=== PATIENT | female | born 1960 | race Caucasian/White ===

== ENCOUNTER 2017-08-27 16:17 | Emergency (ER) | payer MEDICAID, OTHER ==
[~2017-08-27] VITALS: Ht 167.6 cm; Wt 78.9 kg
--- NOTE | 2017-08-27 16:26 | NUR ---
aaox3, BBRA FROM HOME FOR DIZZINESS AND NAUSEA X THIS 0730AM, also c/o abdominal discomfort. RR is even and unlabored with nad noted. Skin is warm and dry. Awaiting md for eval.
[2017-08-27] MEDS ORDERED: ONDANSETRON HCL/PF 4 MG/2 ML VIAL ONE ×2 (16:44→16:58)
[2017-08-27] MEDS ORDERED: KETOROLAC TROMETHAMINE INJ 30 MG/ML VIAL ONE ×2 (16:44→16:58)
[2017-08-27] MEDS ORDERED: ONDANSETRON HCL/PF 4 MG/2 ML VIAL IVP ONE (17:00)
[2017-08-27] MEDS ORDERED: IV NS 0.9% 1,000 ML BAG IV ONE ×2 (17:00→20:00)
[2017-08-27] MEDS ORDERED: KETOROLAC TROMETHAMINE INJ 30 MG/ML VIAL IV ONE (17:00)
[2017-08-27 17:16] LABS: BASOPHILS % (AUTO) 0.1 % (0.0-2.0); EOSINOPHILS % (AUTO) 1.4 % (0.0-6.0); HEMATOCRIT 42 % (33-45); HEMOGLOBIN 14.2 g/dL (11.5-14.8); LYMPHOCYTES # (AUTO) 1.2 /CMM (0.8-4.8); LYMPHOCYTES % (AUTO) 6.8 % (20.0-44.0); MEAN CORPUSCULAR HGB CONC 34 g/dl (31.0-36.0); MEAN CORPUSCULAR VOLUME 87 fL (82-100); MONOCYTES # (AUTO) 0.8 /CMM (0.1-1.30); MONOCYTES % (AUTO) 4.5 % (2.0-12.0); NEUTROPHILS # (AUTO) 15.6 /CMM (1.8-8.9); NEUTROPHILS % (AUTO) 87.2 % (43.0-81.0); PLATELET COUNT (AUTO) 287 /CMM (150-450); RDW COEFFICIENT OF VARIATION 12.5 (11.5-15.0); RED BLOOD CELL COUNT(AUTO) 4.82 MIL/uL (4.0-5.2); WHITE BLOOD COUNT (AUTO) 17.9 K/uL (4.3-11.0)
[2017-08-27 17:19] LABS: CREATININE 0.6 mg/dL (0.6-1.3); POTASSIUM 3.8 mmol/L (3.5-5.1)
[2017-08-27 17:23] LABS: ALBUMIN 3.4 g/dL (3.4-5.0); BILIRUBIN,DIRECT 0.1 mg/dL (0.0-0.2); BILIRUBIN,TOTAL 0.6 mg/dL (0.2-1.0); TOTAL PROTEIN, SERUM 7.6 g/dL (6.4-8.2)
--- NOTE | 2017-08-27 19:10 | NUR ---
REPORT GIVEN TO SCOT LO FOR DANI.
--- NOTE | 2017-08-27 19:14 | NUR ---
URINE COLLECTED. SENT TO LAB
--- NOTE | 2017-08-27 19:14 | NUR ---
RECEIVED REPORT FROM SCOT BAH FOR DANI. PT APPEARS COMFORTABLE. DAUGHTER AT BEDSIDE
[2017-08-27 19:16] LABS: APPEARANCE,URINE Clear (CLEAR); BILIRUBIN,URINE Negative (NEGATIVE); BLOOD, URINE Trace-intact Ery/uL (NEGATIVE); COLOR,URINE Yellow (YELLOW); KETONES,URINE Negative (NEGATIVE); LEUKOCYTE ESTERASE ,URINE Trace (NEGATIVE); NITRITE, URINE Negative (NEGATIVE); PH,URINE 5.5 (5.0-8.0); PROTEIN,URINE Negative (NEGATIVE); UGLUCOSE Negative (NEGATIVE); UROBILINOGEN,URINE 0.2 EU/dL (0.2)
[2017-08-27] MEDS ORDERED: METRONIDAZOLE 500MG/ NS 100ML 500 MG in PREMIX 1 EA IV STA (19:25)
[2017-08-27] MEDS ORDERED: CIPROFLOXACIN IV RTU 400 MG in PREMIX 1 EA IV STA (19:25)
[2017-08-27 19:26] LABS: BACTERIA,URINE 1+ /HPF (None Seen); SQUAMOUS EPITHELIAL CELL,UR Few /HPF (None Seen)
--- NOTE | 2017-08-27 19:31 | NUR ---
CALLED PHARMACY FOR IV ATB
--- NOTE | 2017-08-27 19:35 | NUR ---
RECEIVED PREMIXED ATB FROM PHARMACY
[2017-08-27] MEDS ORDERED: LOSA50TA21 PO (19:36)
[2017-08-27] MEDS ORDERED: VENL75TA4 PO (19:36)
[2017-08-27] MEDS ORDERED: OXYB5TAB11 PO (19:36)
[2017-08-27] MEDS ORDERED: GLYB5TAB7 PO (19:36)
[2017-08-27] MEDS ORDERED: METF-442 PO ×2 (19:36→19:37)
[2017-08-27] MEDS ORDERED: INSU100V7 SQ (19:36)
[2017-08-27] MEDS ORDERED: ASPI-1169 PO (19:36)
[2017-08-27] MEDS ORDERED: LORA0.5T PO (19:36)
--- NOTE | 2017-08-27 19:44 | NUR ---
DR. BAUMAN AT BEDSIDE SPEAKING TO PT / FAMILY REGARDING POC AND RESULTS. RN HOV AT BEDSIDE TO TRANSLATE.
[2017-08-27] MEDS ORDERED: ACETAMINOPHEN 325 MG TABLET ONE (21:06)
[2017-08-27] MEDS ORDERED: ACETAMINOPHEN 650 MG/20.3 ML UDC PO ONE (21:30)
--- NOTE | 2017-08-27 21:38 | NUR ---
accepted at [facility]-a. # [phone]
--- NOTE | 2017-08-27 21:49 | NUR ---
CALLED [facility] FOR REPORT, PER MANISH WILL CALL BACK IN 10 MINS.
--- NOTE | 2017-08-27 22:31 | NUR ---
REPORT GIVEN TO SCOT FERNANDO FROM [facility] FOR 301-A. UNIT CALL BACK NUMBER [phone].
--- NOTE | 2017-08-28 00:38 | NUR ---
CALLED [facility] FOR TRANSFER UPDATED ETA WAS [phone] TRIP [id number]
--- NOTE | 2017-08-28 00:51 | NUR ---
SCOT HAMMOND FROM [facility] MADE AWARE ETA [employer] 1 HR.
[2017-08-28 01:30] VITALS: BP 147/75
--- NOTE | 2017-08-28 01:31 | NUR ---
REPORT GIVEN TO [id number] FOR DANI. PT AWARE OF TRANSFER. PT WITH ALL PERSONAL BELONGINGS. PT IV INTACT AND PANTENT. NO S/S INFECTION OR INFILTRATION NOTED. PT VSS. PT TO BE TRANSFERRED TO [facility] VIA [facility]. PER PA TOOK OVER CARE.
== END 2017-08-28 01:35 | disposition short-term general hospital (02) ==
LOC: ER 16:20
DX: K52.9 Noninfective gastroenteritis and colitis, unspecified (principal); E86.0 Dehydration; I10 Essential (primary) hypertension; E11.9 Type 2 diabetes mellitus without complications; Z79.84 Long term (current) use of oral hypoglycemic drugs; Z79.82 Long term (current) use of aspirin; Z79.4 Long term (current) use of insulin
CPT/HCPCS: 36415; 71045; 74176; 80048; 80076; 81001; 83690; 85025; 96361; 96365; 96366; 96368; 96375; 99285; A4216 ×2; A4606; J0744; J1885; J2405; J3490; J7030 ×3; Z7610; 81000-TC